=== PATIENT | female | born 1950 | race Caucasian/White ===

== ENCOUNTER 2017-11-28 00:07 | Emergency (ER) | payer OTHER ==
[~2017-11-28] VITALS: Ht 157.5 cm; Wt 66.1 kg
[2017-11-28 00:10] VITALS: BP 194/95; PULSE 91; RESP 20; TEMP 97.8; O2SAT 99
[2017-11-28 01:55] LABS: BILIRUBIN, URINE NEG (NEG); BLOOD, URINE LARGE (NEG); GLUCOSE,URINE NEG (NEG); KETONE, URINE NEG (NEG); NITRITE,URINE POS (NEG); PH, URINE 6.5 (5.0-8.5); URINE COLOR YELLOW (YELLW/STRAW); URINE LEUKOCYTE ESTERASE MOD (NEG)
[2017-11-28 02:16] LABS: WBC, URINE INNUM /hpf (0-5); WHITE BLOOD CELL CLUMPS MOD
[2017-11-28 02:17] LABS: BACTERIA, URINE MANY /hpf; SQUAMOUS EPITHELIAL CELL URINE 0-5 /hpf (0-5)
--- NOTE | 2017-11-28 02:21 | PD ---
HPI Chief Complaint: Molding Process Technician Problem Time Seen by Provider: 01:12 Travel History International Travel<30 days: No Contact w/Intl Traveler<30days: No Traveled to known affect area: No History of Present Illness HPI 67-year-old female presents to the emergency department for complaint of urinary catheter blockage. Patient states she had a procedure through her urologist Dr. Phillips last week and was to have her urinary catheter removed on Wednesday. Patient noted today after visiting nurse stopped by that she was not having normal urine output. Patient requested to have the urinary catheter removed today. Patient this evening noted no urine output through the urinary catheter but urinated around the catheter onto her clothing. Patient does not report any fever or chills. No report of gross hematuria. Patient presents requesting the catheter be removed. PFSH Past Medical History Narrative Medical Tubal ligation; partial bladder resection; no tobacco use; nursing notes reviewed Medical History: Denies Significant Hx Tetanus Vaccination: Unknown Influenza Vaccination: No ?: Not Tubal Ligation: Yes Past Surgical History Genitourinary Surgery: Yes (PARTIAL BLADDER RESECTION) Social History Alcohol Use: Yes (DAILY) Tobacco Use: No (QUIT 11/03/17) Substance Use: No Allergies-Medications (Allergen,Severity, Reaction): Coded Allergies: No Known Allergies (Unverified , 11/28/17) Review of Systems Except as stated in HPI: all other systems reviewed are Neg General / Constitutional: No: Fever, Chills HENT: No: Congestion Cardiovascular: No: Chest Pain or Discomfort Respiratory: No: Shortness of Breath Gastrointestinal: No: Abdominal Pain Genitourinary: Positive: Decreased Urinary Output Musculoskeletal: No: Pain Skin: No Rash Neurologic: No: Weakness Psychiatric: No: Anxiety Hematologic/Lymphatic: No: Lymph Node Enlargement Physical Exam Narrative GENERAL: Well-developed well-nourished female in obvious discomfort SKIN: Warm and dry. HEAD: Normocephalic. EYES: No scleral icterus. No injection or drainage. NECK: Supple, trachea midline. No JVD or lymphadenopathy. CARDIOVASCULAR: Regular rate and rhythm without murmurs, gallops, or rubs. RESPIRATORY: Breath sounds equal bilaterally. No accessory muscle use. GASTROINTESTINAL: Abdomen soft, non-tender, mildly distended. : Urinary catheter in place with out urine in catheter bag MUSCULOSKELETAL: No cyanosis, or edema. BACK: Nontender without obvious deformity. No CVA tenderness. Data Data Last Documented VS Vital Signs Date Time Temp Pulse Resp B/P (MAP) Pulse Ox O2 Delivery O2 Flow Rate FiO2 11/28/17 00:50 Room Air 11/28/17 00:10 97.8 91 20 194/95 (128) 99 Orders Orders Urinalysis - C+S If Indicated (11/28/17 01:12) Urine Culture (11/28/17 01:35) Nitrofurantoin Monohyd Macrocr (Macrobid (11/28/17 02:45) Labs Laboratory Tests Test 11/28/17 01:35 Urine Color YELLOW Urine Turbidity CLEAR Urine pH 6.5 Urine Specific [place] 1.010 Urine Protein TRACE mg/dL Urine Glucose (UA) NEG mg/dL Urine Ketones NEG mg/dL Urine Occult Blood LARGE Urine Nitrite POS Urine Bilirubin NEG Urine Urobilinogen 0.2 MG/DL Urine Leukocyte Esterase MOD Urine RBC 20-24 /hpf Urine WBC INNUM /hpf Urine WBC Clumps MOD Urine Squamous Epithelial Cells 0-5 /hpf Urine Bacteria MANY /hpf Microscopic Urinalysis Comment CATH-CULTURE IND MDM Medical Decision Making Medical Screen Exam Complete: Yes Emergency Medical Condition: Yes Medical Record Reviewed: Yes Interpretation(s) Nitrites white blood cells clumped white blood cells many bacteria culture indicate UA: Differential Diagnosis Urinary retention, catheter obstruction, UTI Narrative Course Patient aware of recommendation to flush catheter to see if it is functioning and if not we will have to remove the catheter and consider replacement of the catheter Patient refused catheter flushing patient feels distended and complains of discomfort therefore will remove catheter and see if patient is able to urinate independently and will send urine specimen Patient with good urine output has urinated 5 times while in the emergency; urinalysis found to be abnormal with nitrites clumped white blood cells and many bacteria culture indicated with good specimen; patient states she has been on antibiotic and does not know the name of her antibiotic therefore will be given a one-time dose of Macrobid as refuses injection of Rocephin. Patient is encouraged to call the emergency department with the name of her current antibiotic and we will write a prescription for a new antibiotic. Patient is encouraged to return the emergency department for any recurrence of urinary retention and to follow-up with her urologist on Wednesday. Diagnosis Primary Impression: UTI (urinary tract infection) Additional Impressions: Encounter for removal of urinary catheter Blocked urinary catheter Qualified Codes: T83.098A - Other mechanical complication of other urinary catheter, initial encounter Referrals: Nagi Phillips MD 2 days Patient Instructions: General Instructions Additional Instructions: Complete antibiotic course Follow-up with urologist on Wednesday Monitor temperature every 4 hours with thermometry take as needed as tolerated acetaminophen/Tylenol every 4 hours for fever 100.4F or greater and/or ibuprofen/Advil/Motrin every 6-8 hours for fever 100.4F or greater pain Associates inflammation as allowed by her surgeon Return to the emergency department for any concerns or change in condition or recurrent urinary retention Disposition: 01 DISCHARGE HOME Condition: Stable Britt Chandler MD Nov 28, 2017 02:20
[2017-11-28] MEDS ORDERED: NITROFURANTOIN MONOHYD MACROCR 100 MG CAP PO ONE (02:45)
[2017-11-28] MEDS ORDERED: CIPR-9 PO (03:07)
== END 2017-11-28 02:44 | disposition home or self-care (01) ==
LOC: PHED 00:07
DX: N39.0 Urinary tract infection, site not specified (principal); T83.098A Other mechanical complication of other urinary catheter, initial encounter; B96.20 Unspecified Escherichia coli [E. coli] as the cause of diseases classified elsewhere; A49.8 Other bacterial infections of unspecified site; Z87.891 Personal history of nicotine dependence
CPT/HCPCS: 81001; 87077; 87086; 87186; 99283